=== PATIENT | female | born 1940 | race Caucasian/White ===

== ENCOUNTER 2018-01-15 10:24 | Day surgery (SDC) | payer MEDICARE ==
[2018-01-14 13:31] VITALS: BMI 22.6
[2018-01-15 12:07] LABS: #Basophils 0.1 thou/uL (0.0-0.2); #Eosinphils 0.6 thou/uL (0.0-0.7); #Lymphocytes 2.1 thou/uL (1.20-3.40); #Monocytes 0.5 thou/uL (0.11-0.59); #Neutrophils 2.8 thou/uL (1.40-6.50); %Eosinophils 10.4 % (0.0-10.0); %Lymphocytes 34.6 % (21.0-51.0); %Monocytes 8.9 % (0.0-10.0); %Neutrophils 45.1 % (42.0-75.0); Hemoglobin 15.1 g/dL (12.0-16.0); Mean Corpuscular Hemoglobin 31.5 pg (27.0-31.0); Mean Corpuscular Volume 95.2 fL (78.0-98.0); Mean Platelet Volume 6.7 fL (7.4-10.4); Platelet Count 299 thou/uL (130-400); Red Blood Cell (RBC) Count 4.79 mill/uL (4.20-5.40); White Blood Cell (WBC) Count 6.1 thou/uL (4.8-10.8)
[2018-01-15 12:17] LABS: INR-International Normal Ratio 0.9; PTT 28.8 SEC (22.9-36.1); Prothrombin Time 12.6 SEC (12.0-14.7)
[2018-01-15 12:22] LABS: Anion Gap 9 mmol/L (10-20); BUN (Urea Nitrogen) 18 mg/dL (9.8-20.1); Calc. Creatinine Clearance 47 mL/min (70-130); Carbon Dioxide 27 mmol/L (23-31); Chloride 108 mmol/L (98-107); Estimated GFR-MDRD 59; Glucose 84 mg/dL (83-110); Sodium 140 mmol/L (136-145)
[2018-01-15] MEDS ORDERED: Levofloxacin 500 mg/D5W 100 ml Premix Bag ONE (13:16)
[2018-01-15] MEDS ORDERED: Fentanyl 100 MCG/2 ML VIAL ONE (13:19)
--- NOTE | 2018-01-15 20:42 | OP ---
PREOPERATIVE DIAGNOSIS: History of interstitial cystitis with some worsening of symptoms. POSTOPERATIVE DIAGNOSIS: History of interstitial cystitis with some worsening of symptoms. PROCEDURE PERFORMED: Cystoscopy and bladder hydrodistention. SURGEON: Dr. Ranjan Larios. ANESTHETIC: General. ESTIMATED BLOOD LOSS: Minimal. FINDINGS: There was no urethral stenosis. There was old scar on the posterior wall just left of the midline. No tumor, foreign body, or stone. She was distended 3 times for 5 minutes under 70 cm of water pressure each time for 500, 600, 600 mL of volume. Cystoscopic exam done after this showed jus t some hematuria and bladder wall using but nothing else. OPERATIVE TECHNIQUE: After obtaining written and verbal consent from the patient and after receiving IV antibiotics, she was taken the operating suite. She was given a general anesthetic and oral obtu rator intubation, and placed in dorsal lithotomy position, sterilely prepped and draped. Cystoscopy was performed. She cannot not tolerate even up to probably 100 to 150 mL, so she was replaced to the supine position, given a general anesthetic, oral intubation and then reprepped and draped. Cystosc opy was then performed with a 22-E[place]ian sheath. This was well lubricated, passed under direct vision through the female urethra and urinary bladder with aid of a 30-degree lens and a video camera and m onitor. The bladder was filled and emptied a number of times, examined with the 30- and 70-degree le ns. We then passed a 16-E[place]ian Ellsworth catheter, put 20 mL in the balloon and began filling her up wit h saline. The wound was brought down to the bladder neck, so she would not leak around it. This was done under 70 cm of water pressure. Once we reached a point where it was not dripping anymore, it w as distended for 5 minutes with this open. We then drained her, measured this and repeated this two more times with the above findings. At this point, we repeated cystoscopy and found no other signifi cant abnormality except for some oozing at the bladder mucosa. The bladder was drained again. The i nstruments were removed. She was awakened and extubated and taken by stretcher to the recovery room.
== END 2018-01-15 17:30 | disposition home or self-care (01) ==
LOC: SDC 10:24
PROVIDERS: ATTEND Urology
PROC: 0T7B8ZZ Dilation of Bladder, Via Natural or Artificial Opening Endoscopic (ICD-10-PCS; principal; 2018-01-15)
DX: N30.10 Interstitial cystitis (chronic) without hematuria (principal); M19.90 Unspecified osteoarthritis, unspecified site; K21.9 Gastro-esophageal reflux disease without esophagitis; E03.9 Hypothyroidism, unspecified; J45.909 Unspecified asthma, uncomplicated; Z79.51 Long term (current) use of inhaled steroids; Z79.82 Long term (current) use of aspirin; Z79.899 Other long term (current) drug therapy; Z88.0 Allergy status to penicillin; Z88.2 Allergy status to sulfonamides; Z88.5 Allergy status to narcotic agent
CPT/HCPCS: 36415; 80048; 85025; 85610; 85730; J1956; J3010

== ENCOUNTER 2018-01-23 08:10 | Outpatient (CLI) | payer MEDICARE ==
[2018-01-23 10:43] LABS: Bilirubin Negative (Negative); Blood, Urine Small (Negative); Clarity CLEAR (Clear); Glucose, Urine (Dipstick) Negative (Negative); Leukocyte Small (Negative); Nitrite Negative (Negative); Protein, Urine (Dipstick) Negative (Neg-Trace); Specific Gravity, Urine 1.017 (1.002-1.036); Urobilinogen 0.2 mg/dL (0.2-1.0)
[2018-01-23 10:45] LABS: Bacteria/HPF None Seen HPF (None Seen); Hyaline Casts/LPF 0-3 HYALINE CAST LPF (0-3 Hyaline); Squamous Epithelial 0-3 HPF (0-3)
--- NOTE | 2018-01-23 12:00 | RAD ---
TWO VIEW CHEST: HISTORY: Preoperative evaluation. COMPARISON: 05/03/2011. FINDINGS: Lung nelson are clear. Heart and mediastinum appear normal. Osseous structures are unremarkable wit h mild degenerative changes in the spine seen. IMPRESSION: Chest is unremarkable and unchanged from prior exam. POS: BEL
== END 2018-01-23 08:11 | disposition home or self-care (01) ==
LOC: LABBT 08:10
PROVIDERS: ATTEND Orthopaedic Surgery
DX: Z01.818 Encounter for other preprocedural examination (principal); M17.12 Unilateral primary osteoarthritis, left knee
CPT/HCPCS: 71046; 81001; 86850; 86900; 86901; 87081; 93005; 93010

== ENCOUNTER 2018-01-28 07:25 | Inpatient (IN) | payer MEDICARE ==
[2018-01-23 08:29] VITALS: BMI 22.6
[2018-01-28] MEDS ORDERED: Acetaminophen 325 MG TAB PO PRN (08:41)
[2018-01-28] MEDS ORDERED: Fentanyl 100 MCG/2 ML VIAL SLOW IVP PRN ×2 (08:41→09:42)
[2018-01-28] MEDS ORDERED: Zolpidem Tartrate 5 MG TAB PO PRN ×2 (08:41→09:41)
[2018-01-28] MEDS ORDERED: HYDROcodone/Acetaminophen 10/325 mg Tablet PO PRN ×2 (08:41)
[2018-01-28] MEDS ORDERED: traMADol HCl 50 MG TAB PO PRN (08:41)
[2018-01-28] MEDS ORDERED: Promethazine HCl 25 MG/ML VIAL IM PRN ×3 (08:41→11:10)
[2018-01-28] MEDS ORDERED: diphenhydrAMINE 25 MG CAP PO PRN (08:41)
[2018-01-28] MEDS ORDERED: Ondansetron PF 4 MG/2 ML Vial IVP PRN (08:41)
[2018-01-28] MEDS ORDERED: cloNIDine 0.1 MG TAB PO PRN ×2 (08:43→15:30)
[2018-01-28] MEDS ORDERED: Calcium Carbonate 500 MG ChewTAB PO PRN ×2 (08:43→16:14)
[2018-01-28] MEDS ORDERED: Levofloxacin 500 mg/D5W 100 ml Premix Bag ONE (08:43)
[2018-01-28] MEDS ORDERED: Tranexamic Acid 1,000 MG/10 ML VIAL ONE (08:43)
[2018-01-28] MEDS ORDERED: Sodium Chloride 0.9% 100 ML ONE (08:43)
[2018-01-28] MEDS ORDERED: Aspirin 81 mg Enteric Coated Tablet PO SCH (08:45)
[2018-01-28] MEDS ORDERED: Polyethylene Glycol OPTH DROP 15 ML BOT EA EYE SCH (08:45)
[2018-01-28] MEDS ORDERED: Fentanyl 100 MCG/2 ML VIAL ONE (08:47)
[2018-01-28] MEDS ORDERED: Midazolam HCl 2 mg/2 ml Vial ONE (08:47)
[2018-01-28] MEDS ORDERED: Ketorolac Tromethamine 30 MG/ML VIAL IVP PRN (09:41)
[2018-01-28] MEDS ORDERED: HYDROcodone/Acetaminophen 7.5/325 mg Tablet PO PRN (09:43)
[2018-01-28] MEDS ORDERED: Promethazine HCl 25 MG/ML VIAL SLOW IVP PRN (11:10)
[2018-01-28] MEDS ORDERED: Ondansetron HCl/PF 4 MG/2 ML Vial IVP PRN (11:10)
--- NOTE | 2018-01-28 11:32 | OP ---
PREOPERATIVE DIAGNOSIS: Degenerative joint disease, left knee. POSTOPERATIVE DIAGNOSIS: Degenerative joint disease, left knee. SURGEON: Nathen Pringle M.D. [employer]CE SUPERVISOR: Magdiel Brand PA-C. BLOOD LOSS: Minimal. SPECIMEN: None. DRAINS: None. COMPLICATIONS: None. TOURNIQUET TIME: 46 minutes. PROCEDURE: Left total knee arthroplasty using Sherman Triathlon 4 femur, 3 tibia, 9 mm CS X3 polyeth ylene, and A29 patella. PROCEDURE IN DETAIL: After informed consent was obtained in the preoperative holding area. The alana ent was taken to the operative suite where general anesthesia was induced. Once adequate level of ge neral anesthesia was obtained, the patient was positioned and a well-padded tourniquet was placed reilly und the left proximal thigh. The left lower extremity was then prepped and draped in the usual steri le fashion. Prior to exsanguination, a time out was called and all members of the surgical team agre ed upon site, surgeon, and patient. The extremity was then exsanguinated and the tourniquet was rais ed. A midline longitudinal incision was then made directly over the patella extending two fingerbrea dths above the superior pole of the patella and two fingerbreadths inferior to the inferior patellar pole of the patella. Deeper subcutaneous layers were dissected sharply and local bleeding was contro lled with Bovie electrocautery. A quad tendon longitudinal split was then made sharply and a median parapatellar arthrotomy was carried out both sharp and with Bovie electrocautery, carried down to one fingerbreadth medial to the tibial tubercle. The knee was then placed into flexion and the patella was everted nicely, and a copious fat pad ectomy was performed allowing for greater exposure of the t ibia. The computer-assisted distal femoral fiducial was then placed and pinned firmly, and the dista l femoral cutting guide was pinned firmly into place. The oscillating saw was then used to remove th e appropriate amount of bone. The 4-in-1 cutting block was then placed on the distal femur and the o scillating saw was used to remove the appropriate amount of bone off of the anterior, posterior, and chamfer cuts. After completion of bone cuts, the anterior cruciate ligament was resected sharply and the posterior cruciate ligament retractor was placed and the tibia was subluxed for better exposure. Partial meniscectomies were carried out, and the tibial computer-assisted fiducial was pinned, and the cutting guide was placed. Oscillating saw was then used to remove the bone with Hohmann retracto rs used to take care and protect the collateral ligaments. After the tibial resection was performed, a laminar mechanical spreader operator was placed in between the freshened bone cuts. The knee placed at 90 degrees and further bilateral meniscectomies were carried out, and the curved osteotome and curettage was used t o remove any excess bone spurs in the posterior compartment. The trial femoral component, tibial bas eplate were placed with the appropriate polyethylene trial insert with an appropriate polyethylene sp acer and patellar button. The knee was taken through full range of motion with flexion and extension from 0-90 degrees and patellar broach squarely in the trochlea without any squinting or subluxation noted. The knee was also stable to varus and valgus stressing at 0, 15, 45, and 90 degrees of flexio n. The drawer was negative. All trial components were then removed and the keel punch was used to p rovide the appropriate defect in the tibia with a mallet. The freshened bone cuts were copiously irr igated with pulsatile lavage of about 1-1/2 liters to remove all excess debris. The freshened bone c uts were then dried and with suction and lap sponge. The knee was placed in flexion and retractors w ere placed to provide access to all bone cuts. Tobramycin impregnated methyl methacrylate cement was then placed on the freshened bone cuts and implants which were malleted firmly into place. Curettag e and Caret elevators were used to remove any excess bone cement. The knee was placed into full exte nsion and the patellar button was placed under compression, and the cement was allowed to cure. Once completed, the components were again taken through full range of motion and copious irrigation of th e knee was carried out with another liter of normal saline. All components were inspected fully with full range of motion and varus and valgus stressing. There was no laxity noted and full extension w as observed clinically. Primary closure was accomplished with #2 interrupted Vicryl stitch of the ar throtomy defect. This was oversewn with a #2 running Quill barbed stitch. The gravitational platele t system was then injected into the arthrotomy prior to closure. The subcutaneous layer was then michelle sed with a running 0 barbed Monocryl stitch and skin closure accomplished with a running subcuticular 3-0 Monocryl barbed Quill stitch and augmented with cement on the skin. Tourniquet was lowered. Go od spontaneous return of distal pulses was noted clinically and a sterile dressing was applied to the incision. The procedure was terminated without any complications. The patient was awakened in the operative suite and the tourniquet was removed, and the patient was taken to the recovery room in sta ble condition.
--- NOTE | 2018-01-28 12:51 | RAD ---
PORTABLE LEFT KNEE 2 VIEWS: HISTORY: Total knee arthroplasty postop exam. FINDINGS/IMPRESSION: There are recent postop changes of total knee arthroplasty in good position and alignment. Soft tiss ue air is present. POS: H
[2018-01-28] MEDS ORDERED: Ketorolac Tromethamine 30 MG/ML VIAL IM SCH (14:00)
[2018-01-28] MEDS ORDERED: Ropivacaine 0.5% HCl/PF (150 MG/30 ML VIAL) ONE (14:17)
[2018-01-28] MEDS ORDERED: Bupivacaine 0.25% HCL 30 ML VIAL ONE (14:17)
[2018-01-28] MEDS ORDERED: PROPOFOL 200 MG/20 ML VIAL ONE (14:26)
[2018-01-28] MEDS ORDERED: Lidocaine 1% PF 5 ML VIAL ONE (14:26)
[2018-01-28] MEDS: Cyanocobalamin (Vitamin B-12) 1,000 MCG TAB PO SCH (15:36)
[2018-01-28] MEDS: Aspirin 81 mg Enteric Coated Tablet PO SCH ×2 (15:36→20:14)
[2018-01-28] MEDS: FLUoxetine HCl 20 MG CAP PO SCH ×2 (15:36→20:13)
[2018-01-28] MEDS: Sodium Chloride 0.9% 1,000 ML IV SCH ×2 (15:36→20:17)
--- NOTE | 2018-01-28 18:02 | PDOC.PN ---
- Subjective Encounter Start Date: 01/28/18 Encounter Start Time: 15:00 Patient seen and examined for med mngt. No new complaints. No CP/SOB. - Objective MAR Reviewed: Yes Vital Signs & Weight: Vital Signs (12 hours) Temp Pulse Resp BP Pulse Ox 01/28/18 12:26 97.5 F L 75 18 154/74 H 100 Weight Weight 128 lb Result Diagrams: 01/29/18 04:52 Additional Labs: Laboratory Tests 01/15/18 01/15/18 11:49 11:49 Hgb 15.1 Hct 45.6 Sodium 140 Potassium 4.0 BUN 18 Creatinine 0.93 EKG Reviewed by me: Yes (Tele SR) Phys Exam - Physical Examination Constitutional: NAD Respiratory: no wheezing, no rhonchi Cardiovascular: RRR, no rub Gastrointestinal: soft, non-tender, positive bowel sounds Musculoskeletal: no edema Neurological: moves all 4 limbs Dx/Plan - Plan DVT proph w/SCDs 1. HTN 2. HLD 3. GERD 4. CKD 2 5. Hypothyroidism 6. Anxiety/Depression PLAN: Cont Clonidine PRN Cont Levothyroxine Cont other meds as below. Full code. DPOA - self/family Thank you for this consultation. Will follow Review of Systems - Review of Systems Respiratory: negative: Cough, Dry, Shortness of Breath, Hemoptysis, SOB with Excertion, Pleuritic Pain, Sputum, Wheezing Cardiovascular: negative: chest pain, palpitations, orthopnea, paroxysmal nocturnal dyspnea, edema, light headedness, other Gastrointestinal: negative: Nausea, Vomiting, Abdominal Pain, Diarrhea, Constipation, Melena, Hematochezia, Other - Medications/Allergies Allergies/Adverse Reactions: Allergies Allergy/AdvReac Type Severity Reaction Status Date / Time morphine Allergy Intermediate Anxiety Verified 01/23/18 08:31 Penicillins Allergy Rash Verified 01/23/18 08:31 Sulfa (Sulfonamide Allergy Rash Verified 01/23/18 08:31 Antibiotics) Medications: Current Medications Acetaminophen (Tylenol) 1,000 mg PO Q6HR RASHEL Hydrocodone Bitart/Acetaminophen ([place] 7.5/325) 1 tab PO Q4H PRN PRN Reason: Mild Pain (1-3) Hydrocodone Bitart/Acetaminophen ([place] 7.5/325) 2 tab PO Q4H PRN PRN Reason: Moderate Pain (4-6) Aspirin (Ecotrin) 81 mg PO BID [facility] Last Admin: 01/28/18 15:36 Dose: Not Given Calcium Carbonate (Tums) 1,000 mg PO Q4H PRN PRN Reason: Heartburn or Indigestion Clonidine (Catapres) 0.1 mg PO Q4H PRN PRN Reason: Systolic BP > 180 Cyanocobalamin (Vitamin B-12) 500 mcg PO DAILY [facility] Last Admin: 01/28/18 15:36 Dose: Not Given Diphenhydramine HCl (Benadryl) 25 mg PO Q6H PRN PRN Reason: Itching Famotidine (Pepcid) 20 mg PO BID [facility] Fentanyl (Sublimaze) 50 mcg SLOW IVP Q1H PRN PRN Reason: breakthrough pain Ferrous Gluconate (Fergon) 324 mg PO BID-WM [facility] Fluoxetine HCl (Prozac) 20 mg PO BID [facility] Last Admin: 01/28/18 15:36 Dose: Not Given Fluticasone Propionate (Flovent Hfa 110 Mcg) 110 mcg INH BID-RT [facility] Levofloxacin 500 mg/ Device 100 mls @ 100 mls/hr IVPB 0900 [facility] Stop: 01/29/18 09:59 Sodium Chloride (Normal Saline 0.9%) 1,000 mls @ 100 mls/hr IV .Q10H [facility] Last Admin: 01/28/18 15:36 Dose: Not Given Vancomycin HCl 1 gm/ Device 200 mls @ 200 mls/hr IVPB 2100 [facility] Stop: 01/28/18 21:59 Ropivacaine 250 ml/ Device 250 mls @ 10 mls/hr NERVE BLCK INF [facility] Iron/Minerals/Multivitamins (Theragran M) 1 tab PO DAILY [facility] Ketorolac Tromethamine (Toradol) 15 mg IVP Q6H PRN PRN Reason: Moderate Pain (4-6) Stop: 01/31/18 09:42 Levothyroxine Sodium (Synthroid) 50 mcg PO HS [facility] Ondansetron HCl (Zofran) 4 mg IVP Q6H PRN PRN Reason: Nausea/Vomiting Darifenacin Hydrobromide [ Enablex] 7.5 Mg 0 each PO HS [facility] Promethazine HCl (Phenergan) 12.5 mg IM Q4H PRN PRN Reason: Nausea Propylene Glycol (Systane Opth Drop 15ml Bot) 0 drop [facility] RASHEL Senna/Docusate Sodium (Senokot S) 2 tab PO BID [facility] Sodium Chloride (Flush - Normal Saline) 10 ml IVF PRN PRN PRN Reason: Saline Flush Tramadol HCl (Ultram) 50 mg PO Q6H PRN PRN Reason: Mild Pain (1-3) Tramadol HCl (Ultram) 100 mg PO Q6H PRN PRN Reason: Moderate Pain 4-6 Zolpidem Tartrate (Ambien) 5 mg PO HSPRN PRN PRN Reason: Insomnia
[2018-01-28] MEDS ORDERED: Fluticasone Propionate HFA 110 MCG AER INH SCH (18:30)
[2018-01-28] MEDS: Levothyroxine Sodium 50 MCG TAB PO SCH (20:12)
[2018-01-28] MEDS: Famotidine 20 MG TAB PO SCH (20:13)
[2018-01-28] MEDS ORDERED: Famotidine 20 MG TAB PO SCH (21:00)
[2018-01-28] MEDS ORDERED: DARIFENACIN HYDROBROMIDE 7.5 MG PO SCH (21:00)
[2018-01-28] MEDS ORDERED: Vancomycin HCl 1 GM in Premix Bag 1 BAG IVPB SCH (21:00)
[2018-01-28] MEDS: Acetaminophen 500 MG TAB PO SCH ×2 (22:14→22:15)
[2018-01-29] MEDS: HYDROcodone/Acetaminophen 7.5/325 mg Tablet PO PRN (00:55)
[2018-01-29] MEDS: Ondansetron PF 4 MG/2 ML Vial IVP PRN ×2 (03:14→09:21)
[2018-01-29] MEDS: Sodium Chloride 0.9% 1,000 ML IV SCH ×2 (05:28→15:27)
[2018-01-29 05:50] LABS: Hemoglobin 12.2 g/dL (12.0-16.0); Mean Corpuscular HGB CONC 32.8 g/dL (32.0-36.0); Mean Corpuscular Hemoglobin 31.3 pg (27.0-31.0); Mean Corpuscular Volume 95.3 fL (78.0-98.0); Mean Platelet Volume 7.3 fL (7.4-10.4); Platelet Count 224 thou/uL (130-400); RBC Distribution Width 12.1 % (11.5-14.5); Red Blood Cell (RBC) Count 3.88 mill/uL (4.20-5.40); White Blood Cell (WBC) Count 10.4 thou/uL (4.8-10.8)
[2018-01-29] MEDS: Mometasone 100 MCG HFA INHALER INH SCH ×2 (07:09→19:38)
[2018-01-29] MEDS: Senokot S 8.6-50 MG TAB PO SCH ×2 (08:29→19:49)
[2018-01-29] MEDS: Multivitamin W/ Minerals 1 TAB PO SCH (08:29)
[2018-01-29] MEDS: Aspirin 81 mg Enteric Coated Tablet PO SCH ×2 (08:30→19:50)
[2018-01-29] MEDS: Cyanocobalamin (Vitamin B-12) 1,000 MCG TAB PO SCH (08:30)
[2018-01-29] MEDS: FLUoxetine HCl 20 MG CAP PO SCH ×2 (08:30→19:50)
[2018-01-29] MEDS: Ferrous Gluconate 324 MG TAB PO SCH ×2 (08:30→18:30)
[2018-01-29] MEDS: traMADol HCl 50 MG TAB PO PRN ×3 (08:30→19:52)
[2018-01-29] MEDS: TROSPIUM 20 MG TABLET PO SCH (13:22)
[2018-01-29] MEDS: Ropivacaine HCl/PF 250 ML in Premix Bag 1 BAG NERVE BLCK SCH (13:25)
[2018-01-29] MEDS: Famotidine 20 MG TAB PO SCH (19:50)
[2018-01-29] MEDS: Levothyroxine Sodium 50 MCG TAB PO SCH (19:50)
[2018-01-30] MEDS: Sodium Chloride 0.9% 1,000 ML IV SCH ×3 (00:02→19:57)
[2018-01-30 05:42] LABS: Hemoglobin 11.9 g/dL (12.0-16.0); Mean Corpuscular HGB CONC 32.8 g/dL (32.0-36.0); Mean Corpuscular Volume 94.5 fL (78.0-98.0); Mean Platelet Volume 7.1 fL (7.4-10.4); Platelet Count 222 thou/uL (130-400); Red Blood Cell (RBC) Count 3.84 mill/uL (4.20-5.40); White Blood Cell (WBC) Count 9.6 thou/uL (4.8-10.8)
[2018-01-30] MEDS: Mometasone 100 MCG HFA INHALER INH SCH ×2 (07:05→19:38)
[2018-01-30] MEDS: Senokot S 8.6-50 MG TAB PO SCH ×2 (09:06→20:49)
[2018-01-30] MEDS: traMADol HCl 50 MG TAB PO PRN ×2 (09:06→18:29)
[2018-01-30] MEDS: Cyanocobalamin (Vitamin B-12) 1,000 MCG TAB PO SCH (09:07)
[2018-01-30] MEDS: Ferrous Gluconate 324 MG TAB PO SCH ×2 (09:07→16:57)
[2018-01-30] MEDS: FLUoxetine HCl 20 MG CAP PO SCH ×2 (09:07→20:48)
[2018-01-30] MEDS: Aspirin 81 mg Enteric Coated Tablet PO SCH ×2 (09:07→20:48)
[2018-01-30] MEDS: Multivitamin W/ Minerals 1 TAB PO SCH (09:07)
[2018-01-30] MEDS: TROSPIUM 20 MG TABLET PO SCH (09:08)
[2018-01-30] MEDS ORDERED: cloNIDine 0.1 MG TAB PO PRN (11:49)
--- NOTE | 2018-01-30 11:53 | PDOC.PN ---
- Subjective Encounter Start Date: 01/30/18 Encounter Start Time: 08:00 Patient seen and examined for med mngt. No new complaints except for intermittent postsurgical pain. No overnight events - Objective MAR Reviewed: Yes Vital Signs & Weight: Vital Signs (12 hours) Temp Pulse Resp BP BP Pulse Ox 01/30/18 09:00 179/72 H 01/30/18 07:52 94 L 01/30/18 07:27 98.2 F 82 14 184/81 H 94 L 01/30/18 07:05 77 16 97 01/30/18 04:38 98.4 F 80 16 165/80 H 95 01/30/18 00:00 98.6 F 77 16 145/72 H 95 Weight Admit Weight 128 lb Weight 128 lb I&O: 01/29/18 01/30/18 01/31/18 06:59 06:59 06:59 Intake Total 1200 1450 300 Output Total 1850 2550 Balance -650 -1100 300 Result Diagrams: 01/30/18 04:55 Phys Exam - Physical Examination Constitutional: NAD Respiratory: no wheezing, no rhonchi Cardiovascular: RRR, no rub Gastrointestinal: soft, positive bowel sounds Musculoskeletal: no edema Dx/Plan - Plan DVT proph w/SCDs 1. HTN 2. HLD 3. GERD 4. Anxiety/Depression 5. Hypothyroidism 6. CKD 2 /Overactive bladder PLAN: Clonidine as needed for SBP >160 Cont Levothyroxine at current dose Cont other meds as below. Review of Systems - Review of Systems Respiratory: negative: Cough, Dry, Shortness of Breath, Hemoptysis, SOB with Excertion, Pleuritic Pain, Sputum, Wheezing Cardiovascular: negative: chest pain, palpitations, orthopnea, paroxysmal nocturnal dyspnea, edema, light headedness, other - Medications/Allergies Allergies/Adverse Reactions: Allergies Allergy/AdvReac Type Severity Reaction Status Date / Time morphine Allergy Intermediate Anxiety Verified 01/23/18 08:31 Penicillins Allergy Rash Verified 01/23/18 08:31 Sulfa (Sulfonamide Allergy Rash Verified 01/23/18 08:31 Antibiotics) Medications: Current Medications Hydrocodone Bitart/Acetaminophen ([place] 7.5/325) 1 tab PO Q4H PRN PRN Reason: Mild Pain (1-3) Hydrocodone Bitart/Acetaminophen ([place] 7.5/325) 2 tab PO Q4H PRN PRN Reason: Moderate Pain (4-6) Last Admin: 01/29/18 00:55 Dose: 2 tab Aspirin (Ecotrin) 81 mg PO BID [facility] Last Admin: 01/30/18 09:07 Dose: 81 mg Calcium Carbonate (Tums) 1,000 mg PO Q4H PRN PRN Reason: Heartburn or Indigestion Clonidine (Catapres) 0.1 mg PO Q4H PRN PRN Reason: Systolic BP > 160 Cyanocobalamin (Vitamin B-12) 500 mcg PO DAILY [facility] Last Admin: 01/30/18 09:07 Dose: 500 mcg Diphenhydramine HCl (Benadryl) 25 mg PO Q6H PRN PRN Reason: Itching Famotidine (Pepcid) 20 mg PO QPM [facility] Last Admin: 01/29/18 19:50 Dose: 20 mg Fentanyl (Sublimaze) 50 mcg SLOW IVP Q1H PRN PRN Reason: breakthrough pain Ferrous Gluconate (Fergon) 324 mg PO BID[facility] Last Admin: 01/30/18 09:07 Dose: Not Given Fluoxetine HCl (Prozac) 20 mg PO BID [facility] Last Admin: 01/30/18 09:07 Dose: 20 mg Sodium Chloride (Normal Saline 0.9%) 1,000 mls @ 100 mls/hr IV .Q10H [facility] Last Admin: 01/30/18 07:24 Dose: Not Given Ropivacaine 250 ml/ Device 250 mls @ 10 mls/hr NERVE BLCK INF [facility] Last Admin: 01/29/18 13:25 Dose: 250 mls Iron/Minerals/Multivitamins (Theragran M) 1 tab PO DAILY [facility] Last Admin: 01/30/18 09:07 Dose: 1 tab Ketorolac Tromethamine (Toradol) 15 mg IVP Q6H PRN PRN Reason: Moderate Pain (4-6) Stop: 01/31/18 09:42 Levothyroxine Sodium (Synthroid) 50 mcg PO HS [facility] Last Admin: 01/29/18 19:50 Dose: 50 mcg Mometasone Furoate (Asmanex Hfa 100 Mcg) 1 puff INH BID-RT [facility] Last Admin: 01/30/18 07:05 Dose: 1 puff Ondansetron HCl (Zofran) 4 mg IVP Q6H PRN PRN Reason: Nausea/Vomiting Last Admin: 01/29/18 09:21 Dose: 4 mg Promethazine HCl (Phenergan) 12.5 mg IM Q4H PRN PRN Reason: Nausea Propylene Glycol (Systane Opth Drop 15ml Bot) 0 drop EA EYE ASDIR [facility] Senna/Docusate Sodium (Senokot S) 2 tab PO BID [facility] Last Admin: 01/30/18 09:06 Dose: 2 tab Sodium Chloride (Flush - Normal Saline) 10 ml IVF PRN PRN PRN Reason: Saline Flush Last Admin: 01/29/18 08:29 Dose: 10 ml Tramadol HCl (Ultram) 50 mg PO Q6H PRN PRN Reason: Mild Pain (1-3) Last Admin: 01/29/18 13:22 Dose: 50 mg Tramadol HCl (Ultram) 100 mg PO Q6H PRN PRN Reason: Moderate Pain 4-6 Last Admin: 01/30/18 09:06 Dose: 100 mg Trospium (Trospium) 20 mg PO DAILY [facility] Last Admin: 01/30/18 09:08 Dose: 20 mg Zolpidem Tartrate (Ambien) 5 mg PO HSPRN PRN PRN Reason: Insomnia
[2018-01-30] MEDS: Ropivacaine HCl/PF 250 ML in Premix Bag 1 BAG NERVE BLCK SCH (12:43)
[2018-01-30] MEDS: Levothyroxine Sodium 50 MCG TAB PO SCH (20:48)
[2018-01-30] MEDS: Famotidine 20 MG TAB PO SCH (20:48)
[2018-01-30] MEDS: HYDROcodone/Acetaminophen 7.5/325 mg Tablet PO PRN (21:39)
[2018-01-31] MEDS: traMADol HCl 50 MG TAB PO PRN (00:40)
[2018-01-31 05:52] LABS: Hemoglobin 11.8 g/dL (12.0-16.0); Mean Corpuscular HGB CONC 32.9 g/dL (32.0-36.0); Mean Corpuscular Hemoglobin 31.1 pg (27.0-31.0); Mean Corpuscular Volume 94.3 fL (78.0-98.0); Mean Platelet Volume 7.1 fL (7.4-10.4); Platelet Count 243 thou/uL (130-400); Red Blood Cell (RBC) Count 3.79 mill/uL (4.20-5.40); White Blood Cell (WBC) Count 8.8 thou/uL (4.8-10.8)
[2018-01-31] MEDS: Mometasone 100 MCG HFA INHALER INH SCH (06:48)
[2018-01-31 08:07] VITALS: BP 150/70; TEMP 97.8
[2018-01-31] MEDS: Senokot S 8.6-50 MG TAB PO SCH (08:33)
[2018-01-31] MEDS: Cyanocobalamin (Vitamin B-12) 1,000 MCG TAB PO SCH (08:33)
[2018-01-31] MEDS: Aspirin 81 mg Enteric Coated Tablet PO SCH (08:33)
[2018-01-31] MEDS: Ferrous Gluconate 324 MG TAB PO SCH (08:34)
[2018-01-31] MEDS: Multivitamin W/ Minerals 1 TAB PO SCH (08:34)
[2018-01-31] MEDS: FLUoxetine HCl 20 MG CAP PO SCH (08:34)
[2018-01-31] MEDS: TROSPIUM 20 MG TABLET PO SCH (08:35)
[2018-01-31] MEDS: HYDROcodone/Acetaminophen 7.5/325 mg Tablet PO PRN (09:40)
== END 2018-01-31 10:49 | disposition swing bed (61) | DRG 470 ==
LOC: SDC 07:25 → SJJU 12:24
PROVIDERS: ADMIT Orthopaedic Surgery; ATTEND Orthopaedic Surgery
PROC: 0SRD0J9 Replacement of Left Knee Joint with Synthetic Substitute, Cemented, Open Approach (ICD-10-PCS; principal; 2018-01-28)
DX: M17.12 Unilateral primary osteoarthritis, left knee (principal); I12.9 Hypertensive chronic kidney disease with stage 1 through stage 4 chronic kidney disease, or unspecified chronic kidney disease; N18.2 Chronic kidney disease, stage 2 (mild); E78.5 Hyperlipidemia, unspecified; K21.9 Gastro-esophageal reflux disease without esophagitis; F41.9 Anxiety disorder, unspecified; F32.9 Major depressive disorder, single episode, unspecified; E03.9 Hypothyroidism, unspecified; N32.81 Overactive bladder; Z88.5 Allergy status to narcotic agent; Z88.0 Allergy status to penicillin; Z88.2 Allergy status to sulfonamides; Z79.82 Long term (current) use of aspirin; Z79.899 Other long term (current) drug therapy; Z96.651 Presence of right artificial knee joint
CPT/HCPCS: 36415; 85027; C1713; C1776; G8978-GP-CL; G8979-GP-CJ; G8987-GO-CL; G8988-GO-CJ; J1885; J1956; J2001; J2250; J2405; J2704; J2795; J3010; J3370; J7050; S0020

== ENCOUNTER 2022-01-17 11:28 | Outpatient (CLI) | payer MEDICARE ==
[2022-01-17 12:28] LABS: Hemoglobin 13.9 g/dL (12.0-15.5); Mean Corpuscular HGB CONC 33.9 g/dL (32.0-36.0); Mean Corpuscular Hemoglobin 31.7 pg (27.0-33.0); Mean Corpuscular Volume 93.4 fl (81.6-98.3); Mean Platelet Volume 8.9 fl (7.4-10.4); Platelet Count 264 10x3/uL (150-450); RBC Distribution Width 13.1 % (11.5-14.5); Red Blood Cell (RBC) Count 4.39 10x6/uL (3.90-5.03); White Blood Cell (WBC) Count 5.9 10x3/uL (3.5-10.5)
[2022-01-17 12:33] LABS: INR-International Normal Ratio 0.9; PTT 27.2 sec (22.0-33.0)
[2022-01-17 12:37] LABS: Anion Gap 11 mmol/L (10-20); BUN (Urea Nitrogen) 18 mg/dL (9.8-20.1); Calc. Creatinine Clearance 0 mL/min (70-130); Calcium 9.5 mg/dL (7.8-10.44); Carbon Dioxide 25 mmol/L (23-31); Chloride 106 mmol/L (98-107); Estimated GFR 66; Glucose 116 mg/dL (83-110); Potassium 4.1 mmol/L (3.5-5.1); Sodium 138 mmol/L (136-145)
== END 2022-01-17 11:29 | disposition home or self-care (01) ==
LOC: LABBT 11:28
PROVIDERS: ATTEND Urology
DX: Z01.818 Encounter for other preprocedural examination (principal); N30.10 Interstitial cystitis (chronic) without hematuria
CPT/HCPCS: 80048; 85027; 85610; 85730; 87086; 93005; 93010

== ENCOUNTER 2022-01-23 11:10 | Day surgery (SDC) | payer MEDICARE ==
[2022-01-22 11:16] VITALS: BMI 24.6
[2022-01-23] MEDS ORDERED: SUGAMMADEX SODIUM 200 MG/2 ML VIAL ONE (13:51)
[2022-01-23] MEDS ORDERED: Famotidine/PF 20 mg/2ml Vial ONE (13:51)
[2022-01-23] MEDS ORDERED: fentaNYL PF 100 MCG/2 ML SYRINGE ONE (13:51)
[2022-01-23] MEDS ORDERED: Levofloxacin 500 mg/D5W 100 ml Premix Bag ONE (13:54)
[2022-01-23] MEDS ORDERED: Rocuronium Bromide 10 MG/ML (10ML VIAL) ONE (14:01)
[2022-01-23] MEDS ORDERED: PROPOFOL 200 MG/20 ML VIAL ONE (14:01)
[2022-01-23] MEDS ORDERED: ePHEDrine 50 MG/ML VIAL ONE (14:01)
[2022-01-23] MEDS ORDERED: Esmolol 100 MG/10 ML VIAL ONE (14:01)
[2022-01-23] MEDS ORDERED: Metoclopramide HCl 10 MG/2 ML VIAL ONE (14:01)
[2022-01-23] MEDS ORDERED: Ondansetron PF 4 MG/2 ML Vial ONE (14:01)
== END 2022-01-23 16:14 | disposition home or self-care (01) ==
LOC: SDC 11:10
PROVIDERS: ATTEND Urology
PROC: 0T7B8ZZ Dilation of Bladder, Via Natural or Artificial Opening Endoscopic (ICD-10-PCS; principal; 2022-01-23)
DX: N30.10 Interstitial cystitis (chronic) without hematuria (principal); E03.9 Hypothyroidism, unspecified; K21.9 Gastro-esophageal reflux disease without esophagitis; M15.9 Polyosteoarthritis, unspecified; J45.909 Unspecified asthma, uncomplicated; I10 Essential (primary) hypertension; Z79.82 Long term (current) use of aspirin; Z79.890 Hormone replacement therapy; Z79.899 Other long term (current) drug therapy; Z88.0 Allergy status to penicillin; Z88.2 Allergy status to sulfonamides; Z88.5 Allergy status to narcotic agent
CPT/HCPCS: J1956; J2405; J2704; J2765; J3490; S0028

== ENCOUNTER 2023-02-26 11:02 | Outpatient (CLI) | payer MEDICARE | END 2023-02-26 11:03 | disposition home or self-care (01) | LOC: RAD 11:02 | PROVIDERS: ATTEND Physician Assistant Medical | DX: R13.12 Dysphagia, oropharyngeal phase (principal); K21.9 Gastro-esophageal reflux disease without esophagitis; R13.11 Dysphagia, oral phase; R05.3 Chronic cough | CPT/HCPCS: 74230 ==

== ENCOUNTER 2024-02-19 07:04 | Day surgery (SDC) | payer MEDICARE ==
[2024-02-18 10:47] VITALS: BMI 25.3
[2024-02-19] MEDS ORDERED: fentaNYL 50 mcg/mL 1 mL Vial ONE (07:58)
[2024-02-19] MEDS ORDERED: Midazolam HCl 2 mg/2 ml Vial ONE (07:59)
[2024-02-19] MEDS ORDERED: Sodium Chloride 0.9% 1,000 ML IV SCH (08:15)
[2024-02-19] MEDS ORDERED: Diazepam 5 MG TAB PO SCH (08:15)
[2024-02-19 08:32] LABS: #Basophils 0.07 10x3/uL (0.0-0.2); %Basophils 1.2 % (0.0-1.0); %Eosinophils 9.7 % (0.0-10.0); %Lymphocytes 30.2 % (21.0-51.0); %Monocytes 10.2 % (0.0-10.0); %Neutrophils 48.4 % (42.0-75.0); Hematocrit 41.3 % (36.0-47.0); Hemoglobin 13.9 g/dL (12.0-16.0); Mean Corpuscular HGB CONC 33.7 g/dL (32.0-36.0); Mean Corpuscular Hemoglobin 31.9 pg (27.0-31.0); Mean Corpuscular Volume 94.7 fL (78.0-98.0); Mean Platelet Volume 8.9 fL (7.4-10.4); Platelet Count 265 10x3/uL (130-400); RBC Distribution Width 13.2 % (11.5-14.5); Red Blood Cell (RBC) Count 4.36 mill/uL (4.20-5.40)
[2024-02-19] MEDS ORDERED: Atropine Sulfate 1 mg/10 ml Syringe ONE (08:44)
[2024-02-19] MEDS ORDERED: Nitroglycerin 50 MG/250 ML BOT 0 ML ONE (08:44)
[2024-02-19] MEDS ORDERED: Heparin 10,000 UNITS/ 10 ML VIAL ONE (08:49)
[2024-02-19] MEDS ORDERED: hydrALAZINE 20 MG/ML VIAL ONE (08:53)
[2024-02-19 08:59] LABS: Anion Gap 12 mmol/L (10-20); BUN (Urea Nitrogen) 14 mg/dL (9.8-20.1); Calc. Creatinine Clearance 56 mL/min (70-130); Calcium 9.4 mg/dL (7.8-10.44); Carbon Dioxide 22 mmol/L (23-31); Cardiac Risk 2.5 (Less than 4.5); Chloride 112 mmol/L (98-107); Cholesterol 157 mg/dl (< 200 Desired); Estimated GFR 74; Glucose 93 mg/dL (83-110); HDL Cholesterol 64 mg/dL (>60 Neg Risk); LDL Cholesterol, Calculated 80 mg/dL; Potassium 4.1 mmol/L (3.5-5.1); Sodium 142 mmol/L (136-145); Triglycerides 65 mg/dL (Less than 150)
[2024-02-19] MEDS ORDERED: Acetaminophen/Codeine 30-300mg Tablet ONE (10:06)
[2024-02-19] MEDS ORDERED: Iopamidol 370 76% 100 ML VIAL ONE (14:44)
== END 2024-02-19 13:57 | disposition home or self-care (01) ==
LOC: CCL 07:04
PROVIDERS: ATTEND Internal Medicine Cardiovascular Disease
PROC: 4A023N7 Measurement of Cardiac Sampling and Pressure, Left Heart, Percutaneous Approach (ICD-10-PCS; principal; 2024-02-19)
DX: R94.39 Abnormal result of other cardiovascular function study (principal); E78.5 Hyperlipidemia, unspecified; I10 Essential (primary) hypertension; I25.10 Atherosclerotic heart disease of native coronary artery without angina pectoris; J45.909 Unspecified asthma, uncomplicated; G45.9 Transient cerebral ischemic attack, unspecified; Z86.16 Personal history of COVID-19; Z96.653 Presence of artificial knee joint, bilateral; Z90.49 Acquired absence of other specified parts of digestive tract; Z90.710 Acquired absence of both cervix and uterus; Z88.0 Allergy status to penicillin; Z88.2 Allergy status to sulfonamides; Z88.5 Allergy status to narcotic agent; Z88.8 Allergy status to other drugs, medicaments and biological substances; Z79.890 Hormone replacement therapy; Z79.82 Long term (current) use of aspirin; Z79.899 Other long term (current) drug therapy
CPT/HCPCS: 80048; 80061; 85025; 93458; C1769; C1887; J0360; J2250; 99152; J0461; J1644; J3010; Q9967

== ENCOUNTER 2024-03-18 11:54 | Outpatient (CLI) | payer MEDICARE ==
[2024-03-18 12:57] LABS: #Basophils 0.05 10x3/uL (0.0-0.2); %Basophils 0.8 % (0.0-1.0); %Eosinophils 8.1 % (0.0-10.0); %Lymphocytes 29.3 % (21.0-51.0); %Monocytes 9.6 % (0.0-10.0); %Neutrophils 51.7 % (42.0-75.0); Hematocrit 39.3 % (36.0-47.0); Hemoglobin 13.3 g/dL (12.0-16.0); Mean Corpuscular HGB CONC 33.8 g/dL (32.0-36.0); Mean Corpuscular Hemoglobin 31.7 pg (27.0-31.0); Mean Corpuscular Volume 93.8 fL (78.0-98.0); Mean Platelet Volume 8.8 fL (7.4-10.4); Platelet Count 298 10x3/uL (130-400); RBC Distribution Width 13.2 % (11.5-14.5); Red Blood Cell (RBC) Count 4.19 mill/uL (4.20-5.40)
[2024-03-18 13:49] LABS: Calc. Creatinine Clearance 0 mL/min (70-130); Estimated GFR 69
[2024-03-18 14:26] LABS: Anion Gap 12 mmol/L (10-20); BUN (Urea Nitrogen) 15 mg/dL (9.8-20.1); Calcium 9.5 mg/dL (7.6-10.4); Carbon Dioxide 26 mmol/L (23-31); Chloride 107 mmol/L (98-107); Glucose 90 mg/dL (83-110); Potassium 4.1 mmol/L (3.5-5.1); Sodium 141 mmol/L (136-145)
== END 2024-03-18 11:55 | disposition home or self-care (01) ==
LOC: LABBT 11:54
PROVIDERS: ATTEND Neurological Surgery
DX: Z01.818 Encounter for other preprocedural examination (principal); M54.12 Radiculopathy, cervical region
CPT/HCPCS: 80048; 85025; 93005; 93010

== ENCOUNTER 2024-03-23 06:07 | Observation (INO) | payer MEDICARE ==
[2024-03-23] MEDS: Amlodipine 5 MG TAB PO SCH (04:30)
[2024-03-23] MEDS: FLUoxetine HCl 20 MG CAP PO SCH (04:30)
[2024-03-23] MEDS: Fluticasone Propionate HFA 44 MCG AER INH SCH (04:30)
[2024-03-23] MEDS ORDERED: LevoFLOXacin D5W 500 mg (100 mL) BAG ONE (07:13)
[2024-03-23] MEDS ORDERED: Clindamycin/D5W 900 mg/50 ml Premix Bag ONE (07:14)
[2024-03-23] MEDS ORDERED: PROPOFOL 20 ML ONE (07:26)
[2024-03-23] MEDS ORDERED: Fentanyl 250 MCG/5 ML VIAL ONE (07:26)
[2024-03-23] MEDS ORDERED: Ondansetron PF 4 MG/2 ML Vial ONE (07:27)
[2024-03-23] MEDS ORDERED: Dexamethasone 20 MG/5 ML VIAL ONE (07:27)
[2024-03-23] MEDS ORDERED: Midazolam HCl 2 mg/2 ml Vial ONE (07:27)
[2024-03-23] MEDS ORDERED: Rocuronium Bromide 10 MG/ML (10ML VIAL) ONE (07:27)
[2024-03-23] MEDS ORDERED: traMADol HCl 50 MG TAB PO PRN (07:35)
[2024-03-23] MEDS ORDERED: Acetaminophen/Codeine 30-300mg Tablet PO PRN (07:35)
[2024-03-23] MEDS ORDERED: Ondansetron PF 4 MG/2 ML Vial IVP PRN (07:35)
[2024-03-23] MEDS ORDERED: Cyclobenzaprine 10 MG TAB PO PRN (07:35)
[2024-03-23] MEDS ORDERED: Milk Of Magnesia 30 ML UDCUP PO PRN (07:35)
[2024-03-23] MEDS ORDERED: Mag-Al 1200 mg/1200 mg/30 ML UDCUP PO PRN (07:35)
[2024-03-23] MEDS ORDERED: fentaNYL 50 mcg/mL 1 mL Vial SLOW IVP PRN (07:35)
[2024-03-23] MEDS ORDERED: Phenol 177 ML BOT PO PRN (07:38)
[2024-03-23] MEDS ORDERED: Benzocaine/Menthol 1 LOZ LOZ PO PRN (07:39)
[2024-03-23] MEDS ORDERED: Etomidate 40 MG (20 mL) VIAL ONE (07:58)
[2024-03-23] MEDS ORDERED: Esmolol 100 MG/10 ML VIAL ONE (08:24)
[2024-03-23] MEDS ORDERED: Ketorolac Tromethamine 30 MG (1 mL) VIAL ONE (08:24)
[2024-03-23] MEDS ORDERED: Lidocaine 1% PF 5 ML VIAL ONE (08:24)
[2024-03-23] MEDS ORDERED: ePHEDrine Sulfate 50 MG/10 ML VIAL ONE ×2 (08:36→11:02)
[2024-03-23] MEDS ORDERED: SUGAMMADEX SODIUM 200 MG/2 ML VIAL ONE (08:55)
[2024-03-23] MEDS ORDERED: fentaNYL 50 mcg/mL 1 mL Vial ONE ×2 (09:54→10:10)
[2024-03-23] MEDS ORDERED: PHENYLEPHRINE-NS 100 MCG/ML 10 ML SYRINGE ONE (11:28)
[2024-03-23] MEDS: Pantoprazole 40 MG DR.TAB PO SCH (13:33)
[2024-03-23] MEDS: Sodium Chloride 0.9% 1,000 ML IV SCH (13:38)
[2024-03-23] MEDS: Clindamycin/D5W 900 MG in Premix 1 BAG IVPB SCH (13:38)
[2024-03-23] MEDS: Acetaminophen/Codeine 30-300mg Tablet PO PRN (13:56)
[2024-03-23 14:58] VITALS: BMI 25.9
[2024-03-23] MEDS: Acetaminophen 325 MG TAB PO PRN (16:01)
[2024-03-23] MEDS: FLU (Fluad Triv) TS24-25 (65UP)/MF59C/PF 45 MCG/0.5 ML Syringe IM ONE (16:20)
[2024-03-23] MEDS: Atorvastatin Calcium 40 MG TAB PO SCH (20:13)
[2024-03-23] MEDS: Montelukast Sodium 10 mg Tablet PO SCH (20:13)
[2024-03-23] MEDS: Valsartan 80 MG TAB PO SCH (21:07)
[2024-03-24] MEDS: Levothyroxine Sodium 50 MCG TAB PO SCH (04:47)
[2024-03-24 05:43] LABS: #Basophils Less than 0.03 10x3/uL (0.0-0.2); #Eosinophils Less than 0.03 10x3/uL (0.0-0.7); %Basophils 0.1 % (0.0-1.0)
[2024-03-24 06:09] LABS: Anion Gap 13 mmol/L (10-20); BUN (Urea Nitrogen) 17 mg/dL (9.8-20.1); Calc. Creatinine Clearance 47 mL/min (70-130); Calcium 8.7 mg/dL (7.8-10.44); Carbon Dioxide 21 mmol/L (23-31); Chloride 110 mmol/L (98-107); Estimated GFR 60; Glucose 137 mg/dL (83-110); Potassium 4.2 mmol/L (3.5-5.1); Sodium 140 mmol/L (136-145)
[2024-03-24 06:38] LABS: %Lymphocytes 7.7 % (21.0-51.0); %Monocytes 6.2 % (0.0-10.0); %Neutrophils 85.5 % (42.0-75.0); Hematocrit 36.2 % (36.0-47.0); Hemoglobin 12.4 g/dL (12.0-16.0); Mean Corpuscular HGB CONC 34.3 g/dL (32.0-36.0); Mean Corpuscular Hemoglobin 31.5 pg (27.0-31.0); Mean Corpuscular Volume 91.9 fL (78.0-98.0); Platelet Count 267 10x3/uL (130-400); RBC Distribution Width 13.1 % (11.5-14.5); Red Blood Cell (RBC) Count 3.94 mill/uL (4.20-5.40)
[2024-03-24 08:58] VITALS: BP 126/60
[2024-03-24] MEDS ORDERED: FLU (Fluad Triv) TS24-25 (65UP)/MF59C/PF 45 MCG/0.5 ML Syringe IM ONE (09:00)
[2024-03-24 10:44] VITALS: TEMP 97.9
== END 2024-03-24 09:43 | disposition home or self-care (01) ==
LOC: SDC 06:07 → T4-B 11:42
PROVIDERS: ADMIT Neurological Surgery; ATTEND Neurological Surgery
PROC: 0RG10A0 Fusion of Cervical Vertebral Joint with Interbody Fusion Device, Anterior Approach, Anterior Column, Open Approach (ICD-10-PCS; principal; 2024-03-23)
PROC: 0RB30ZZ Excision of Cervical Vertebral Disc, Open Approach (ICD-10-PCS; 2024-03-23)
PROC: 0RG1070 Fusion of Cervical Vertebral Joint with Autologous Tissue Substitute, Anterior Approach, Anterior Column, Open Approach (ICD-10-PCS; 2024-03-23)
DX: M54.12 Radiculopathy, cervical region (principal); I25.10 Atherosclerotic heart disease of native coronary artery without angina pectoris; I12.9 Hypertensive chronic kidney disease with stage 1 through stage 4 chronic kidney disease, or unspecified chronic kidney disease; N18.9 Chronic kidney disease, unspecified; E78.5 Hyperlipidemia, unspecified; E03.9 Hypothyroidism, unspecified; F39 Unspecified mood [affective] disorder; K21.9 Gastro-esophageal reflux disease without esophagitis; Z88.0 Allergy status to penicillin; Z88.2 Allergy status to sulfonamides; Z88.8 Allergy status to other drugs, medicaments and biological substances; Z88.5 Allergy status to narcotic agent; Z79.890 Hormone replacement therapy; Z79.899 Other long term (current) drug therapy
CPT/HCPCS: 20930; 20937; 22551; 22845; 22853; 80048; 85025; 90653; 97110; 97116 ×2; 97530 ×2; C1713 ×6; J1100; J1885; J1956; J2405; J2704; J3010 ×2; J3490; J7030; 36415; J2250